=== PATIENT | female | born 1960 | race Caucasian/White ===

== ENCOUNTER 2025-01-28 11:05 | Outpatient (AMB) | payer MEDICARE, MEDICAID, SELFPAY ==
[2025-01-28 11:30] VITALS: BMI 26.6
--- NOTE | 2025-01-28 11:30 | HO.SPINEOV ---
Vital Signs 01/28/25 11:30 Height 5 ft 6 in Weight 165 lb BMI 26.6 Intake Visit Reasons: LBP Intake Note: Ms. Johnson is here today c/o low back pain that radiates to the legs. Marketing Strategy Manager Required: No Allergies Penicillins Allergy (Severe, Verified 01/28/25 11:32) Muscle Pain Physical Exam Vital Signs: BMI result Body Mass Index 26.6 Assessment & Plan Assessment & Plan (1) Bilateral sacroiliitis: Code(s): M46.1 - Sacroiliitis, not elsewhere classified Category: Medical Plan: Dear colleague Thank you for referring Sana Johnson to the office today with a chief complaint of pain around the SI joint, right more than left HPI: this 65-year-old female is having progressive pain predominantly on the right side in the SI joint region. The symptoms started in 2007 and have slowly progressed over the years. Currently they are debilitating and interfering with her daily activities. She can not sit for any prolonged period of times. Walking standing or sleeping is very painful. She is crying in the office from pain. She can not take it any longer. another side effect, of her in activity is weight gain. She has tried an SI joint belt without success. She had multiple cortisone injections in the lumbar spine in 1 injection in the SI joint the provide no relief. The left side is also affected but much less intense. Sometimes the pain radiates to the posterior side of her thigh. She denies weakness or numbness. The following conservative treatment options were tried without success antiinflammatories, tylenol, physician guided home exercise plan, cortisone shots PMH: AFib for which cardio ablation, hypertension, osteoporosis, GERD, hypothyroidism, stomach stapling, tummy tuck, right ankle replacement Medications: Eliquis, diltiazem, omeprazole, furosemide, lisinopril, hydrocodone, cetirizine, levothyroxine, trazodone, lorazepam, Ventolin p.r.n. Allergies: penicillin, Keflex, Demerol, quinolones Social history: Nonsmoker Physical Exam: pleasant female in obvious agony. Height 5'6 wait on this 65 lb. The severe pain over the right SI joint. Straight leg raise produces pain in the right SI joint. Cross leg test produces pain in the right SI joint. Radiological Studies: A CT scan of the lumbar spine shows a lumbar degenerative scoliosis in the lower part of the lumbar spine And at least osteopenia. Impression/Plan: This 65-year-old female suffering from longstanding pain in the bilateral SI joint region with the right side is more affected than the left side. The symptoms are most likely coming from sacroiliitis and less likely from the degenerative scoliosis. She is at her wits and and therefore I offered her a SI joint fusion with the understanding that her poor bone quality may prevent fusion in the end. I discussed the procedure, postoperative course and expected outcome. She wants to proceed. She will get preoperative clearance from her choreography director and primary care physician. Thank you for allowing me to participate in your patients care. total time spent was 50 minutes in counseling ,coordination of plan, personal review of imaging, surgical decision making and subsequent plan Emanuel Evans MD, PhD Spine Fellowship Trained Neurosurgeon Director, [facility] (2) Scoliosis of lumbar region due to degenerative disease of spine in adult: Code(s): M41.56 - Other secondary scoliosis, lumbar region Category: Medical (3) Osteoporosis: Code(s): M81.0 - Age-related osteoporosis without current pathological fracture Category: Medical Qualifiers: Osteoporosis type: age-related Presence of current pathological fracture: without current pathological fracture Qualified Code(s): M81.0 - Age-related osteoporosis without current pathological fracture Plan: j Plan h Coding Level of Care Code New Pt Level 4 (68355) Diagnoses Bilateral sacroiliitis M46.1 Scoliosis of lumbar region due to degenerative disease of spine in adult M41.56 Age-related osteoporosis without current pathological fracture M81.0 Osteoporosis type: age-related Presence of current pathological fracture: without current pathological fracture
--- OUTSIDE RECORDS SUMMARY | 2025-01-28 12:57 | XMS_ITS | Clinical Summary ---
Author Organization [facility] Address [address] [place] [phone] Phone Care Team Providers Care Lacquer Pin Press Operator Name Role Phone Papito Arroyo DO Primary Care Provider [phone] Allergies Active Allergy Reactions Criticality Noted Date Comments Adhesive Tape High 01/06/2019 Skin rips off Other reaction(s): paper - tears skin Other reaction(s): rash/blisters pt allergic to paper tape Cephalexin Rash,Other (see comments) Low 10/16/2017 Other reaction(s): hives Levofloxacin 12/26/2021 Other reaction(s): pain/depression [place] Other (see comments) 07/05/2020 Other reaction(s): unknown Meperidine Nausea And Vomiting,Other (see comments) 10/16/2017 Meperidine Hcl 12/26/2021 Other reaction(s): N/V Metoprolol Itching 05/09/2023 Hmdwi-Rozpg-Xydyjna-Pra moxine Hives,Itching High 01/06/2019 Antibiotic cream Neomycin Rash Low 12/26/2021 Other reaction(s): rash Other reaction(s): rash Other Itching,Rash,Swellin g Low 11/23/2020 Pollen Extract 10/16/2017 Quinolones Other (see comments) 07/05/2020 Tetracycline Rash Low 07/14/2018 Other reaction(s): rash on face Medications traZODone (DESYREL) 100 MG tablet Take 1 tablet by mouth at bed time Active onabotulinumtox Nick (BOTOX) 200 units injection 06/28/2019 Act rudy LORazepam (ATIVAN) 0.5 MG tablet TAKE 1 TABLET BY MOUTH TWICE A DAY IF NEEDED 08/25/2019 Active HYDROcodone-alysa taminophen (NORCO) 5-325 MG per tablet Take 1 tablet by mouth 4 (four) times a day 09/11/2016 Active dextroamphetami ne (DEXTROSTAT) 10 MG tablet Take 1.5 tablets by mouth 4 (four) times a day 08/17/2016 Active cycloSPORINE (Restasis) 0.05 % ophthalmic emulsion Active bisacodyl (DULCOLAX) 5 MG EC tablet Take 1 tablet by mouth 1 (one) time Active albuterol HFA (PROVENTIL HFA;VENTOLIN HFA) 108 (90 Base) MCG/ACT inhaler 2 puffs as needed Active omeprazole (PriLOSEC) [address] capsule Take 1 capsule by mouth 2 (two) times a day 07/23/2016 Active levothyroxine (SYNTHROID, LEVOTHROID) 112 MCG tablet 06/22/1992 Active Azelastine HCl 0.15 % solution USE 1 TO 2 SPRAYS IN EACH NOSTRIL TWICE DAILY NEEDED FOR ALLERGY SYMPTOMS 11/21/2020 Active FLUoxetine (PROzac) 40 MG capsule TK 2 CS PO QD 10/16/2020 Activ e fluticasone (FLONASE) 50 MCG/ACT nasal spray SHAKE LQ AND U 1 TO 2 SPRAYS IEN D 10/18/2020 Active metroNIDAZOLE (METROGEL) 0.75 % gel APPLY A THIN LAYER TO THE AFFECTED AREA TWICE DAILY AFTER WASHING NEEDED 10/20/2020 Active furosemide (Lasix) 20 MG tablet Take 1 tablet (20 mg total) by mouth 1 (one) time each day 30 tablet 5 03/28/2023 Active lisinopril 2.5 MG tablet Take 1 tablet (2.5 mg total) by mouth 1 (one) time each day 90 tablet 3 06/23/2024 06/23/20 25 Active Active Problems Problem Noted Date Diagnosed Date Chronic kidney disease, stage 4 (severe) 024 Edema 03/05/2024 Hyperkalemia 01/15/2022 Essential hypertension 11/28/2020 Stage 3b chronic kidney disease 11/28/2020 Overview (12/04/2020): Update for Diagnosis Load Chronic kidney disease due to hypertension 07/05 Hypertension 10/16/2017 Iron deficiency anemia 10/15/2017 Immunizations Name Administration Dates Next Due H1N1 Inj 12/10/2009 Influenza (IM) Preservative Free 07/16/2016 Influenza Whole 08/28/2009,09/23/2008 Influenza, MDCK, PF, Quadrivalent 07/24/2020, Influenza, Quadrivalent, Pre servative Free 09/04/2021,07/05/2017,09/01/2015 Influenza, Unspecified 09/04/2021,2019,09/28/2019,09/28,07/28/2018,07/05/2017,11/21/2016 ,07/16/2016,09/01/2015,08/25/2014,07/02,07/21/2012,06/25/2011, 0,10/29/2006 Pfizer SARS-COV-2 11/23/2021, 1,04/08/2021,03/18,03/18/2021 Pneumococcal Polysaccharide 07/16/2019 Td, Unspecified 06/14/2014,06/19/2004 Zoster 02/18/2018 Family History Relation Status Comments Father Unknown Mother Unknown Social History Tobacco Use Types Packs/Day Years Used Date Smoking Tobacco: Former Cigarettes 1.5 20.5 0 12/01/1973 - 05/27/1994 Smokeless Tobacco: Never Tobacco Cessation:Counseling Given: Not Answered Comments:Smoking History Info:Every day Alcohol Use Standard Drinks/Week Comments No 0 (1 standard drink = 0.6 oz pur e alcohol) Comments Unknown Sex and Gender Information Value Date Recorded Sex Assigned at Female 11/22/2020 7:58 AM EST Legal Sex Female 4:35 PM EST Gender Identity Female 11/22/2020 7:58 AM EST Sexual Orientation Straight 11/22/2020 7: 58 AM EST Last Filed Vital Signs Vital Sign Reading Time Taken Comments Blood Pressure 160/80 03/26/2022 10:21 AM EDT Pulse 68 03/26/2022 10:21 AM EDT Temperature 36.7 ??C (98 ??F) 08/03/2019 12:00 PM EDT Respiratory Rate 14 03/26/2022 10:21 AM EDT Oxygen Saturation - - Inhaled Oxygen Concentration - - Weight 65.8 kg (145 lb) 03/26/2022 10:21 AM EDT Height 167.6 cm (5' 6 ) 03/26/2022 10:21 AM EDT Body Mass Index 23.4 03/26/2022 10:21 AM EDT Plan of Treatment Upcoming Encounters Date Type Department Care Team (Late st Contact Info) Description 03/18/2025 11:00 AM EDT Office Visit [facility] [place] - [address] [place] [address] Hayes Eden MD [address] [place] [address] Health Maintenance Due Date Last Done Comments Breast Cancer Screening 1962 Colorectal Cancer Screening: Annual FOBT 2011 Colorectal Cancer Screening: Colonoscopy 2011 Colorectal Cancer Screening: Sigmoidoscopy 2011 Pneumococcal Vaccine: Pediatrics (0 to 5 Years) and At-Risk Patients (6 to 64 Years) (2 of 2 - PCV) 07/16/2020 07/16/2019 Influenza Vaccine (#1) 2024 1, 09/04/2021, 07/24/2020, Additional history exists Hepatitis B Vaccine Aged Out No longe r eligible based on patient's age to complete this topic Insurance MEDICARE MEDICAID [place] Care Teams Lacquer Pin Press Operator Relationship Specialty Start Date End Date Papito Arroyo DO [address] [place] [address] PCP - General 03/05/24
--- OUTSIDE RECORDS SUMMARY | 2025-01-28 12:57 | XMS_ITS | Encounter Summary ---
Author Organization [facility] Address [address] [place] [address] Phone Care Team Providers Care Department Head College Or University Name Role Phone Papito Arroyo DO Primary Care Provider Encounter Details Date Type Department Care Team (Late st Contact Info) Description 07/16/2022 Documentation Only [facility] [address] [place] [address] Lupe Bautista [address] [place] [address] Social History Tobacco Use Types Packs/Day Years Used Date Smoking Tobacco: Former Cigarettes Q uit: 05/27/1994 Comments:Smoking History Inf o:Every day Alcohol Use Standard Drinks/Week Comments No 0 (1 standard drink = 0.6 oz pur e alcohol) Comments Unknown Sex and Gender Information Value Date Recorded Sex Assigned at Female 11/22/2020 7:58 AM EST Legal Sex Female 4:35 PM EST Gender Identity Female 11/22/2020 7:58 AM EST Sexual Orientation Straight 11/22/2020 7: 58 AM EST documented as of this encounter Plan of Treatment Upcoming Encounters Date Type Department Care Team (Late st Contact Info) Description 03/18/2025 11:00 AM EDT Office Visit [facility] - [address]ien [address] [place] [phone] Hayes Eden MD [address] [place] [address] [place] [address] documented as of this encounter Visit Diagnoses Not on filedocumented in this encounter Care Teams Department Head College Or University Relationship Specialty Start Date End Date Papito Arroyo DO [address] [place] [address] PCP - General 03/05/24 documented as of this encounter
--- OUTSIDE RECORDS SUMMARY | 2025-01-28 12:57 | XMS_ITS | Encounter Summary ---
Author Organization [facility] [place], Address [address] [place] [address] Phone Care Team Providers Care Window Shade Cloth Sewer Name Role Phone Papito rAroyo DO Primary Care Provider [phone] Encounter Details Date Type Department Care Team (Late st Contact Info) Description 09/05/2023 Documentation Only [facility] [place] [address] [place] [address] Hayes Eden MD [address] [place] [address] [place] [address] Social History Tobacco Use Types Packs/Day Years [...] Visit [facility] [address] [place] [address] Hayes Eden MD [address] [place] [address] [place] [address] documented as of this encounter Visit Diagnoses Not on filedocumented in this encounter Care Teams Window Shade Cloth Sewer Relationship Specialty Start Date End Date Papito Arroyo DO [address] [place] [address] PCP - General 03/05/24 documented as of this encounter
--- OUTSIDE RECORDS SUMMARY | 2025-01-28 12:57 | XMS_ITS | Encounter Summary ---
Author Organization [facility] Address [address] [place] [address] Phone Care Team Providers Care Analytic Manager Name Role Phone Papito Arroyo DO Primary Care Provider [phone] Encounter Details Date Type Department Care Team (Late st Contact Info) Description 03/20/2023 Office Communication [facility] [address] [place] [phone] Hayes Eden MD [address] [place] [address] [place] [address] Social History Tobacco Use Types [...] AM EST documented as of this encounter Miscellaneous Notes * Telephone Encounter - Addie Timmons - 03/24/2023 9:04 AM EDT Called pt LVM asking her if she was able to get this medication. documented in this encounter Plan of Treatment Upcoming Encounters Date Type Department Care Team (Late st Contact Info) Description 03/18/2025 11:00 AM EDT Office Visit [facility] - Missy [address] [place] [phone] Hayes Eden MD [address] [place] [phone] documented as of this encounter Visit Diagnoses Not on filedocumented in this encounter Care Teams Analytic Manager Relationship Specialty Start Date End Date Papito Arroyo DO [address] [place] [address] PCP - General 03/05/24 documented as of this encounter
--- OUTSIDE RECORDS SUMMARY | 2025-01-28 12:57 | XMS_ITS | Encounter Summary ---
Author Organization [facility] [place], Address [address] [place] [address] Phone Care Team Providers Care Assistant Professor Of Dietetics Name Role Phone Papito Arroyo DO Primary Care Provider [phone] Encounter Details Date Type Department Care Team (Late st Contact Info) Description 09/08/2024 Documentation Only [facility] [place] [address] Kelsey Jacques [address] [place] [address] Social History Tobacco Use Types Packs/Day Years Used Date Smoking Tobacco: Former Cigarettes 1.5 20.5 0 12/01/1973 - 05/27/1994 Smokeless Tobacco: Never Comments:Smoking History Inf o:Every day Alcohol Use [...] Visit [facility] [address] [place] [address] Hayes Eden MD [address] [place] [phone] documented as of this encounter Visit Diagnoses Not on filedocumented in this encounter Care Teams Assistant Professor Of Dietetics Relationship Specialty Start Date End Date Papito Arroyo DO [facility] [place] [address] PCP - General 03/05/24 documented as of this encounter
== END 2025-01-28 12:20 | disposition home or self-care (01) ==
PROVIDERS: PCP Family Medicine; Visit Provider Neurological Surgery
DX: M46.1 Sacroiliitis, not elsewhere classified (principal); M41.56 Other secondary scoliosis, lumbar region; M81.0 Age-related osteoporosis without current pathological fracture
CPT/HCPCS: 99204

== ENCOUNTER → 2025-01-28 11:05 | Outpatient (BNVA) | payer MEDICARE, MEDICAID, SELFPAY | PROVIDERS: PCP Family Medicine; Visit Provider Neurological Surgery | DX: M46.1 Sacroiliitis, not elsewhere classified (principal); M41.56 Other secondary scoliosis, lumbar region; M81.0 Age-related osteoporosis without current pathological fracture | CPT/HCPCS: 99202 ==

== ENCOUNTER 2025-03-31 08:00 | Day surgery (SDC) | payer MEDICARE, MEDICAID, SELFPAY ==
--- OUTSIDE RECORDS SUMMARY | 2025-02-02 10:03 | XMS_ITS | Clinical Summary ---
Author Organization [facility] Address [address] [place] [phone] Phone Care Team Providers Care Pump Attendant Name Role Phone Papito Arroyo DO Primary Care Provider [phone] Allergies Active Allergy Reactions Criticality Noted Date Comments Adhesive Tape High 01/06/2019 Skin rips off Other reaction(s): paper - tears skin Other reaction(s): rash/blisters pt allergic to paper tape Cephalexin Rash,Other (see comments) Low 10/16/2017 Other reaction(s): hives Levofloxacin 12/26/2021 Other reaction(s): pain/depression [place] Other (see comments) 07/05/2020 Other reaction(s): unknown Meperidine Nausea And Vomiting,Other (see comments) 10/16/2017 Meperidine Hcl 12/26/2021 Other reaction(s): N/V Metoprolol Itching 05/09/2023 Vopbc-Wdlmp-Szqgvpg-Pra moxine Hives,Itching High 01/06/2019 Antibiotic cream Neomycin [...] Visit [facility] [place] [place] - [address] [place] [address] Hayes Eden MD [address] [place] [address] Health Maintenance Due Date Last Done Comments [...] topic Insurance MEDICARE MEDICAID [place] Care Teams Pump Attendant Relationship Specialty Start Date End Date Papito Arroyo DO [address] [place] [address] PCP - General 03/05/24
--- OUTSIDE RECORDS SUMMARY | 2025-02-02 10:03 | XMS_ITS | Encounter Summary ---
Author Organization [facility] [place], Address [address] [place] [address] Phone Care Team Providers Care Tooth Inspector Name Role Phone Papito Arroyo DO Primary Care Provider [phone] Encounter Details Date Type Department Care Team (Late st Contact Info) Description 09/08/2024 Documentation Only [facility] [place] [address] Kelsey Jacques [address] [place] [address] Social History Tobacco Use Types [...] Visit [facility] [address] [place] [address] Hayes Eden MD [address] [place] [phone] documented as of this encounter Visit Diagnoses Not on filedocumented in this encounter Care Teams Tooth Inspector Relationship Specialty Start Date End Date Papito Arroyo DO [facility] [place] [address] PCP - General 03/05/24 documented as of this encounter
--- OUTSIDE RECORDS SUMMARY | 2025-02-02 10:03 | XMS_ITS | Encounter Summary ---
Author Organization [facility] [place], Address [address] [place] [address] Phone Care Team Providers Care General Production Laborer Name Role Phone Papito Arroyo DO Primary Care Provider [phone] Encounter Details Date Type Department Care Team (Late st Contact Info) Description 09/05/2023 Documentation Only [facility] [place] [address] [place] [address] Hayes Eden MD [address] [place] [address] [place] [address] Social History Tobacco Use Types [...] Visit [facility] [address] [place] [address] Hayes Eden MD [address] [place] [address] [place] [address] documented as of this encounter Visit Diagnoses Not on filedocumented in this encounter Care Teams General Production Laborer Relationship Specialty Start Date End Date Papito Arroyo DO [address] [place] [address] PCP - General 03/05/24 documented as of this encounter
--- OUTSIDE RECORDS SUMMARY | 2025-02-02 10:03 | XMS_ITS | Encounter Summary ---
Author Organization [facility] Address [address] [place] [address] Phone Care Team Providers Care Computational Scientist Name Role Phone Papito Arroyo DO Primary Care Provider [phone] Encounter Details Date Type Department Care Team (Late st Contact Info) Description 07/16/2022 Documentation Only [facility] [address] [place] [address] Lupe Bautista [address] [place] [address] Social History Tobacco Use Types [...] Visit [facility] - [address] [place] [phone] Hayes Eden MD [address] [place] [address] [place] [address] documented as of this encounter Visit Diagnoses Not on filedocumented in this encounter Care Teams Computational Scientist Relationship Specialty Start Date End Date Papito Arroyo DO [address] [place] [address] PCP - General 03/05/24 documented as of this encounter
--- OUTSIDE RECORDS SUMMARY | 2025-02-02 10:03 | XMS_ITS | Patient Health Record ---
Author Organization [facility] Address [address] [place] [address] Care Team Providers Care Chemistry Lecturer Name Role Phone Mir Harding Primary Care Provider Reason For Referral No Information Plan Of Treatment No Information
--- OUTSIDE RECORDS SUMMARY | 2025-02-02 10:03 | XMS_ITS | Encounter Summary ---
Author Organization [facility] Address [address] [place] [address] Phone Care Team Providers Care Program Admin Name Role Phone Papito Arroyo DO Primary Care Provider [phone] Encounter Details Date Type Department Care Team (Late st Contact Info) Description 03/20/2023 Office Communication [facility] [address] [place] [phone] Hayes Eden MD [address] [place] [address] [place] [address] Social History Tobacco Use Types [...] Visit [facility] - Missy [address] [place] [phone] Hayes Eden MD [address] [place] [phone] documented as of this encounter Visit Diagnoses Not on filedocumented in this encounter Care Teams Program Admin Relationship Specialty Start Date End Date Papito Arroyo DO [address] [place] [address] PCP - General 03/05/24 documented as of this encounter
[2025-02-21 16:55] VITALS: BMI 26.6
[2025-03-31] VITALS (8 sets, daily range): BP systolic 110–132; BP diastolic 45–63; PULSE 77–111; RESP 16–18; TEMP 36.6–36.8; O2SAT 95–99; BMI 26.3
--- NOTE | ~2025-03-31 | FL_ITS ---
EXAMINATION: FL GUIDANCE ONLY HISTORY: SI joint fusion right COMPARISON: None available. TECHNIQUE: Fluoroscopy time: 43.4 seconds. Cumulative Dose: 17.984 mGy. DAP: 6.242 mGym2 Images: 2. FINDINGS: Fluoroscopic spot films of the right sacroiliac joint were obtained. FL/FL guidance in OR IMPRESSION: Fluoroscopy during procedure. Please see procedure report for additional information. Electronically signed by: Malick Vargas MD 03/31/2025 01:36 PM EDT
[2025-03-31] MEDS: vancomycin HCL 1,000 MG in 0.9 % Sodium Chloride 250 ML 270 MG IV (08:46)
[2025-03-31] MEDS: methocarbamoL 750 MG TABLET PO (08:46)
[2025-03-31] MEDS: Lactated Ringers 1,000 ML 100 ML IVCONT (08:50)
--- NOTE | 2025-03-31 10:39 | P.HPSUR_ITS ---
Pre-Procedural Eval Section A - 24 Hr Update-Section A only Date of Service: 03/31/25 The patient is an INPATIENT: No Changes since office visit: No Cold of Flu in the past 2 weeks, No New Medical Problems, No Changes in Medication and No Patient answered all questions The patient has been examined within 24 hours of the surgical procedure. The History & Physical has been completed within 30 days and I have reviewed it.: No Section B - Complete if H&P > 30 days Chief Complaint: Sacroiliitis, not elsewhere classified Allergies: Allergies Allergy/AdvReac Type Severity Reaction Status Date / Time Penicillins Allergy Severe Muscle Pain Verified 01/28/25 11:32 Quinolones Allergy Severe tired, Verified 02/21/25 16:38 depressed, pain cephalexin [From Keflex] Allergy Intermediate Rash Verified 02/21/25 16:38 Tetracyclines Allergy Intermediate Rash Verified 02/21/25 16:39 meperidine [From Demerol] AdvReac Intermediate Nausea and Verified 02/21/25 1 6:38 Vomiting paper tape AdvReac Intermediate tears skin Uncoded 02/21/25 16:38 Review of Systems Sugical H&P ROS: Negative: Constitution, Cardiovascular, Respiratory, Neurological, Psychiatric, Hem-Onc, Allergic/Immunologic, Gastrointestinal, Genitourinary, Musculoskeletal, Integumentary, Endocrine and Eyes/Ears/Nose/Throat Exam Surgical H&P Exam: Normal: HEENT, Normal: Heart, Normal: Lungs, Normal: Extremities, Normal: Abdomen, Normal: Skin and Normal: Neurological (awake, alert,oriented x 3 ) Plan Diagnosis/Plan: Unchanged right SI joint fusion Time Spent With Patient Time: Total time managing care of this patient today __5__ minutes.
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
--- NOTE | 2025-03-31 11:42 | P.DS_ITS ---
DS: Providers Provider Date of Service: 03/31/25 Date of discharge: 03/31/25 Primary care physician: Papito Arroyo DO Admitting clinician: Emanuel Evans DS: Diagnosis Discharge Diagnosis (1) Bilateral sacroiliitis: Status: Acute DS: Summary Time Attestation Discharge Coordination Time (in mins): 4 Quality: Safe Use of Opioids Does Pt have an Active Cancer Diagnosis on the Problem List?: No Quality: Stroke Does the patient have a stroke diagnosis?: No Physical Exam Vital Signs: Vital Signs: Last Vital Signs Temp 97.9 F 03/31/25 08:33 Pulse 84 03/31/25 08:33 Resp 16 03/31/25 08:33 BP 119/63 03/31/25 08:33 Pulse Ox 99 03/31/25 08:33 O2 Del Method Room Air 03/31/25 08:33 BMI result Body Mass Index 26.3 Discharge Plan Discharge Patient Disposition: Home, Self-Care Referrals: Papito Arroyo DO [Primary Care Provider] - 1 Week Discharge Medications: New docusate sodium [Colace] 100 mg capsule 100 mg PO BID Qty: 20 0RF oxycodone 5 mg tablet 5 mg PO Q4H PRN (Reason: pain) Qty: 20 0RF Rx Instructions: Partial Fill upon patient request. Continued hydrocodone-acetaminophen 5-325 mg tablet 2 tab PO QID PRN (Reason: Pain) dextroamphetamine sulfate 10 mg tablet 60 mg PO DAILY lorazepam 0.5 mg tablet 0.5 mg PO BID PRN (Reason: Anxiety) trazodone 100 mg tablet 100 mg PO BEDTIME gabapentin 100 mg capsule 100 mg PO 3XD azelastine 137 mcg (0.1 %) spray,non-aerosol 1 spray intranasal DAILY albuterol sulfate [Ventolin HFA] 90 mcg/actuation HFA aerosol inhaler 2 inh INHALATION Q4-6H PRN (Reason: Shortness Of Breath Or Wheezing) fluticasone propionate 50 mcg/actuation spray,suspension 1 spray INTRANASAL DAILY levothyroxine 112 mcg tablet 112 mcg PO DAILY cyclosporine 0.05 % dropperette 1 drp ophthalmic (eye) BID omeprazole 20 mg capsule,delayed release(DR/EC) 20 mg PO BID diltiazem HCl 180 mg capsule,extended release 24hr 180 mg PO DAILY furosemide 80 mg tablet 60 mg PO DAILY lisinopril 2.5 mg tablet 2.5 mg PO DAILY Held Eliquis 5 mg tablet 5 mg PO BID Hold Instructions: Resume on 04/03/25. you may restart 3 days after surgery Discharge Orders: Discharge Order (Routine); Ordered 03/31/25 Ordered By: William Sosa Diet: Advance to usual diet Activity on Discharge: As tolerated Activity Restrictions/Additional Instructions: After your SI joint fusion surgery we ask you to observe the following restrictions/guidelines: Activity: It is normal to feel some discomfort as you increase your activity, but that will improve with time. We ask you avoid heavy lifting or acitivities that cause pain. As a general rule, 8lbs is a safe limit for lifting right after surgery. We ask you to stay off your right leg after surgery in order to help the SI joint fuse. Please use crutches or walker. You may return to driving when you are off narcotics (such as vicodin, oxycodone, dilaudid, etc), and you are back to normal functional capacity. If you have any concerns please check with office before driving. Return to work is specific to each patient and each surgery, so please speak with your doctor/PA at first follow up. Please bring paperwork such as FMLA at that time if you need it filled out. Follow up: Please call the office, , after surgery to arrange a 3 week follow up for wound check. Wound Care: Your wound was closed with glue, there are no sutures to remove. You may shower on post op day # 1. We ask that you do not let the water soak the wound. If it does get wet, just towel dry lightly. Please do not scrub your incision or place any type of chemical/ointment on the wound. No tub baths, pools or jacuzzis for one month. If you have any leaking or redness from your wound, or fevers, please call office Medications: You may resume Eliquis 3 days after surgery We will give you a short supply of narcotics after surgery (usually one weeks worth). If you need more please call the office but do not use more than prescribed. You will need to give our office 48 hours notice if you need narcotics refilled and we do not fill narcotics on weekends or evenings. If you are on a narcotic, it is a good idea to take a stool softener such as colace or senna to avoid constipation If you take blood thinner such as aspirin, Plavix, Coumadin, Effient, Eliquis etc for conditions such as Afib, DVT, Pulmonary embolus, coronary disease, stents etc please speak with your surgeon about specific details as to when you can resume these medications. You can resume NSAIDs on post op day 1 (eg: Motrin, Naproxen, etc). Print Language: Amharic
--- NOTE | 2025-03-31 12:27 | W.PM.OPN ---
Operative Note Operative Note Date of Service: 03/31/25 Narrative: Preoperative diagnosis: Right Sacroiliitis Postoperative diagnosis: Same Operative procedure: Right sacroiliac joint fusion with 1 allograft implant Surgeon: Emanuel Evans MD, PhD Combatant Diver Qualified: William Sosa PA-C Anesthesia: General Description of procedure: The patient is suffering from right SI joint dysfunction refractory to nonoperative management. The patient has tried and failed all forms of conservative manage med except for an excellent short-term response to a sacroiliac joint injection. The sacroiliac joint was confirmed to be the pain generator after repeated pain blocks. The patient was offered surgical treatment with fixation and arthrodesis of the SI joint. The patient was brought to the operating room and endotracheally intubated. The patient was turned in a prone position on Seymour spine table. Prepping and draping was done followed by a time-out. A C-arm was alternately positioned for lateral, oblique oblique and pelvic inlet and outlet projections througout the procedure. Skin markings were made for the anticipated position of the implant. A 2.5 cm longitudinal skin incision was made. A guide pin was inserted in an outlet oblique image for guidance follow-up insertion of dilator and working cannula. This was secured by placing an anchor pin into the ilium. Consideration was taken to cut channels utilizing a series of drills for decortication and internal fixation device placement. The implant was inserted such that it passed through the ilium, across the sacroiliac joint and into the sacrum, thus transfixing the sacroiliac joint. Proper positioning was confirmed on lateral fluoroscopy. The implant was packed with autologous bone collected from remain of the sacrum and ilium. Additional graft material was inserted into the channel void following the implant. The instruments were withdrawn. Upon completion, final images were obtained that showed a satisfactory position of the implant. Hemostasis was done. The incision was closed with an 0 Vicryl to fashion a 3-0 Vicryl subdermal layer after injecting Marcaine. Dermabond was used to approximate the surgeon. All sponge and needle counts were correct. Patient was extubated and transported in a stable condition to recovery room. Estimated blood loss: 20 Complications: None Operative time: 25 minutes Disposition: Discharge to home
[2025-03-31] MEDS: fentaNYL citrate/PF 100 MCG/2 ML VIAL 50 MCG IVPUSH (13:10)
[2025-03-31] MEDS: oxyCODONE HCl Immed Release 5 MG TABLET PO (13:18)
== END 2025-03-31 14:28 | disposition home or self-care (01) ==
PROVIDERS: PCP Family Medicine; Visit Provider Neurological Surgery
PROC: (CPT 27279; principal; 2025-03-31 10:30)
DX: M46.1 Sacroiliitis, not elsewhere classified (principal); M53.3 Sacrococcygeal disorders, not elsewhere classified; I48.91 Unspecified atrial fibrillation; I10 Essential (primary) hypertension; M81.0 Age-related osteoporosis without current pathological fracture; M41.56 Other secondary scoliosis, lumbar region; K21.9 Gastro-esophageal reflux disease without esophagitis; E03.9 Hypothyroidism, unspecified; Z79.01 Long term (current) use of anticoagulants; Z79.899 Other long term (current) drug therapy; Z88.0 Allergy status to penicillin; Z88.8 Allergy status to other drugs, medicaments and biological substances; Z98.890 Other specified postprocedural states
CPT/HCPCS: 27279; C1713; J0131; J1100; J1171; J2003; J2405; J2704; J3010; J3370; L8699

== ENCOUNTER → 2025-03-31 08:00 | Outpatient (BNV) | payer MEDICARE, MEDICAID, SELFPAY | PROVIDERS: PCP Family Medicine; Visit Provider Physician Assistant | DX: M46.1 Sacroiliitis, not elsewhere classified (principal) | CPT/HCPCS: 27279; 99499 ==

== ENCOUNTER 2025-04-21 10:32 | Outpatient (REF) | payer MEDICARE, MEDICAID, SELFPAY ==
--- OUTSIDE RECORDS SUMMARY | 2025-04-21 11:36 | XMS_ITS | Encounter Summary ---
Author Organization [facility] Address [address] [place] [address] Phone Care Team Providers Care Dope Dry House Operator Name Role Phone Papito Arroyo DO Primary Care Provider [phone] Encounter Details Date Type Department Care Team (Late st Contact Info) Description 07/16/2022 Documentation Only [facility] [place], [address] [place] [address] Lupe Bautista [address] [place] [address] Social History Tobacco Use Types [...] on filedocumented in this encounter Care Teams Dope Dry House Operator Relationship Specialty Start Date End Date Papito Arroyo DO [address] [facility] [place] [address] PCP - General 03/05/24 documented as of this encounter
--- OUTSIDE RECORDS SUMMARY | 2025-04-21 11:36 | XMS_ITS | Encounter Summary ---
Author Organization [facility], Address [address] [place] [address] Phone Care Team Providers Care Wire Stockkeeper Name Role Phone Papito Arroyo DO Primary Care Provider [phone] Encounter Details Date Type Department Care Team (Late st Contact Info) Description 04/19/2025 Orders Only [facility] [address] [place] [phone] Kenyatta Spear [address] [place] [address] Chronic kidney disease, stage 4 [...] Primary documented in this encounter Care Teams Wire Stockkeeper Relationship Specialty Start Date End Date Papito Arroyo DO [address] [place] [address] PCP - General 03/05/24 documented as of this encounter
--- OUTSIDE RECORDS SUMMARY | 2025-04-21 11:36 | XMS_ITS | Encounter Summary ---
Author Organization [facility], Address [address] [place] [address] Phone Care Team Providers Care Supervisor Respiratory Name Role Phone Papito Arroyo DO Primary Care Provider [phone] Encounter Details Date Type Department Care Team (Late st Contact Info) Description 09/08/2024 Documentation Only [facility], - [address] [place] [address] Kelsey Jacques [address] [place] [address] Social History Tobacco Use Types Packs/Day [...] on filedocumented in this encounter Care Teams Supervisor Respiratory Relationship Specialty Start Date End Date Papito Arroyo DO [address] [place] [address] PCP - General 03/05/24 documented as of this encounter
--- OUTSIDE RECORDS SUMMARY | 2025-04-21 11:36 | XMS_ITS | Encounter Summary ---
Author Organization [facility] [place], Address [address] [place] [address] Phone Care Team Providers Care Medical Records Director Name Role Phone Papito Arroyo DO Primary Care Provider [phone] Encounter Details Date Type Department Care Team (Late st Contact Info) Description 09/05/2023 Documentation Only [facility] [place] [address] Hayes Eden MD [address] [place] [address] Social History Tobacco Use Types [...] on filedocumented in this encounter Care Teams Medical Records Director Relationship Specialty Start Date End Date Papito Arroyo DO [address] [facility] [place] [address] PCP - General 03/05/24 documented as of this encounter
--- OUTSIDE RECORDS SUMMARY | 2025-04-21 11:36 | XMS_ITS | Clinical Summary ---
Author Organization [facility] Address [address] [place] [phone] Phone Care Team Providers Care Switch Inspector Name Role Phone Papito Arroyo DO Primary Care Provider [phone] Allergies Active Allergy Reactions Criticality Noted Date Comments Adhesive Tape High 01/06/2019 Skin rips off Other reaction(s): paper - tears skin Other reaction(s): rash/blisters pt allergic to paper tape Cephalexin Rash,Other (see comments) Low 10/16/2017 Other reaction(s): hives Levofloxacin 12/26/2021 Other reaction(s): pain/depression [place] Other (see comments) 07/05/2020 Other reaction(s): unknown Meperidine Nausea And Vomiting,Other (see comments) 10/16/2017 Meperidine Hcl 12/26/2021 Other reaction(s): N/V Metoprolol Itching 05/09/2023 Ucipi-Dvzry-Qwngzks-Pra moxine Hives,Itching High 01/06/2019 Antibiotic cream Neomycin [...] Only [facility] [address] [place] [address] [place] [address] Kenyatta Spear Chronic kidney disease, stage [...] topic Insurance Medicare Medicaid [place] Care Teams Switch Inspector Relationship Specialty Start Date End Date Papito Arroyo DO [address] [place] [address] PCP - General 03/05/24
--- OUTSIDE RECORDS SUMMARY | 2025-04-21 11:36 | XMS_ITS | Encounter Summary ---
Author Organization [facility] Address [address] [place] [address] Phone Care Team Providers Care Station Engineer Name Role Phone Papito Arroyo DO Primary Care Provider [phone] Encounter Details Date Type Department Care Team (Late st Contact Info) Description 03/20/2023 Office Communication [facility] [place], [address] [place] [address] Hayes Eden MD [address] [place] [address] Social History Tobacco Use Types [...] on filedocumented in this encounter Care Teams Station Engineer Relationship Specialty Start Date End Date Papito Arroyo DO [address] [place] [address] PCP - General 03/05/24 documented as of this encounter
== END 2025-04-21 10:33 | disposition home or self-care (01) ==
LOC: HO.HOSX 10:32
PROVIDERS: PCP Family Medicine; Visit Provider Physician Assistant
DX: Z98.1 Arthrodesis status (principal)
CPT/HCPCS: 99212

== ENCOUNTER 2025-04-21 10:32 | Outpatient (AMB) | payer MEDICARE, MEDICAID, SELFPAY ==
--- NOTE | 2025-04-21 10:34 | A.SPINEOV_ITS ---
Intake Visit Reasons: 1st post op Intake Note: Ms. Johnson is here today for 1st post op. Merchandise Planning Manager Required: No Allergies Penicillins Allergy (Severe, Verified 01/28/25 11:32) Muscle Pain Quinolones Allergy (Severe, Verified 02/21/25 16:38) tired, depressed, pain cephalexin [From Keflex] Allergy (Intermediate, Verified 02/21/25 16:38) Rash Tetracyclines Allergy (Intermediate, Verified 02/21/25 16:39) Rash meperidine [From Demerol] Adverse Reaction (Intermediate, Verified 02/21/25 16:38) Nausea and Vomiting paper tape Adverse Reaction (Intermediate, Uncoded 02/21/25 16:38) tears skin Assessment & Plan Assessment & Plan (1) S/P fusion of sacroiliac joint: Code(s): Z98.1 - Arthrodesis status Category: Surgical Plan Sana comes in today for subsequent follow up after having right-sided SI joint fusion completed by Dr. Evans a few weeks ago. She is very concerned that she does not feel she is experiencing any benefit from the surgery. She states that she was told by Dr. Evans prior to surgery that if she does not feel symptom resolution within 10 days, then the surgery was not successful at treating her pain. She has been strictly adhering to the recommendation that she utilize her crutches for ambulation. We discusseTemplate sond cessation of her crutches during this visit today. She asked several questions regarding the postoperative healing course, all of which I answered to the best of my ability. No new neurological deficits. The patient ambulates well and rises from a seated position without difficulty. Her posterior incision site is closed and well healing. I would like to follow up with Sana again in 6 weeks and obtain a set of x-rays of the right SI joint space. Tyson Evans MD,PhD [facility] Orders: Orders XR sacroiliac joint 1-2V Today Z98.1 - Arthrodesis status Coding Level of Care Code Global (58026) Diagnoses S/P fusion of sacroiliac joint Z98.1
--- OUTSIDE RECORDS SUMMARY | 2025-04-21 11:09 | XMS_ITS | Encounter Summary ---
Author Organization [facility], Address [address] [place] [address] Phone Care Team Providers Care Frit Burner Name Role Phone Papito Arroyo DO Primary Care Provider [phone] Encounter Details Date Type Department Care Team (Late st Contact Info) Description 09/08/2024 Documentation Only [facility], - [address] Julien QUIROZ [address] [place] [phone] Kelsey Jacques [address] [place] [phone] Social History Tobacco Use Types Packs/Day [...] as of this encounter Plan of Treatment Not on file documented as of this encounter Visit Diagnoses Not on filedocumented in this encounter Care Teams Frit Burner Relationship Specialty Start Date End Date Papito Arroyo DO [address] [place] [address] PCP - General 03/05/24 documented as of this encounter
--- OUTSIDE RECORDS SUMMARY | 2025-04-21 11:09 | XMS_ITS | Encounter Summary ---
Author Organization [facility] Address [address] [place] [address] Phone Care Team Providers Care Director Traffic And Planning Name Role Phone Papito Arroyo DO Primary Care Provider [phone] Encounter Details Date Type Department Care Team (Late st Contact Info) Description 07/16/2022 Documentation Only [facility], [address] [place] [address] Lupe Bautista [address] [place] [address] Social History Tobacco Use Types [...] on filedocumented in this encounter Care Teams Director Traffic And Planning Relationship Specialty Start Date End Date Papito Arroyo DO [address] [facility] [place] [address] PCP - General 03/05/24 documented as of this encounter
--- OUTSIDE RECORDS SUMMARY | 2025-04-21 11:09 | XMS_ITS | Encounter Summary ---
Author Organization [facility] Address [address] [place] [address] Phone Care Team Providers Care Hatch Boss Name Role Phone Papito Arroyo DO Primary Care Provider [phone] Encounter Details Date Type Department Care Team (Late st Contact Info) Description 03/20/2023 Office Communication [facility], [address] [place] [address] Hayes Eden MD [address] [place] [address] Social History Tobacco Use Types [...] documented in this encounter Plan of Treatment Not on file documented as of this encounter Visit Diagnoses Not on filedocumented in this encounter Care Teams Hatch Boss Relationship Specialty Start Date End Date Papito Arroyo DO [address] [place] [address] PCP - General 03/05/24 documented as of this encounter
--- OUTSIDE RECORDS SUMMARY | 2025-04-21 11:09 | XMS_ITS | Encounter Summary ---
Author Organization [facility], Address [address] [place] [address] Phone Care Team Providers Care Shirt Operator Name Role Phone Papito Arroyo DO Primary Care Provider [phone] Encounter Details Date Type Department Care Team (Late st Contact Info) Description 04/19/2025 Orders Only [facility] - [facility] [address] [place] [phone] Kenyatta Spear [address] [place] [address] Chronic kidney disease, stage 4 (severe) (HCC) (Primary Dx) Social History Tobacco Use Types Packs/Day Years [...] as of this encounter Plan of Treatment Scheduled Orders Name Type Priority Associated Diagnoses Orde r Schedule Urine Albumin / Creatinine Ratio Lab Routine Chronic kidney disease, stage 4 (severe) (HCC) Every 12 Weeks for 4 Occurrences starting 04/19/2025 until 05/20/2026 documented as of this encounter Visit Diagnoses Diagnosis Chronic kidney disease, stage 4 (severe) (HCC)- Primary documented in this encounter Care Teams Shirt Operator Relationship Specialty Start Date End Date Papito Arroyo DO [address] [place] [address] PCP - General 03/05/24 documented as of this encounter
--- OUTSIDE RECORDS SUMMARY | 2025-04-21 11:09 | XMS_ITS ---
Author Name [facility] Organization Unknown Encounters Encounter Type Encounter Reason Primary Diagnosis Location Date Ambulatory [facility] 10/18/2023 Ambulatory [facility] 10/09/2023 Ambulatory [facility] 09/04/2023 Ambulatory [facility] 07/08/2023 Ambulatory [facility] 07/08/2023 Ambulatory [facility] 07/08/2023 Ambulatory [facility] 07/08/2023
--- OUTSIDE RECORDS SUMMARY | 2025-04-21 11:09 | XMS_ITS | Encounter Summary ---
Author Organization [facility], Address [address] [place] [address] Phone Care Team Providers Care Heating Plant Superintendent Name Role Phone Papito Arroyo DO Primary Care Provider [phone] Encounter Details Date Type Department Care Team (Late st Contact Info) Description 09/05/2023 Documentation Only [facility] [address] [place] [address] Hayes Eden MD [address] [place] [address] Social History Tobacco Use Types [...] on filedocumented in this encounter Care Teams Heating Plant Superintendent Relationship Specialty Start Date End Date Papito Arroyo DO [address] [facility] [place] [address] PCP - General 03/05/24 documented as of this encounter
--- OUTSIDE RECORDS SUMMARY | 2025-04-21 11:09 | XMS_ITS | Patient Health Record ---
Author Organization [facility] Address [address] [place] [address] Care Team Providers Care Allocations Clerk Name Role Phone Mir Harding Primary Care Provider Reason For Referral No Information Plan Of Treatment No Information
--- OUTSIDE RECORDS SUMMARY | 2025-04-21 11:09 | XMS_ITS | Clinical Summary ---
Author Organization [facility] Address [address] [place] [phone] Phone Care Team Providers Care Cane Cutter Name Role Phone Papito Arroyo DO Primary Care Provider [phone] Allergies Active Allergy Reactions Criticality Noted Date Comments Adhesive Tape High 01/06/2019 Skin rips off Other reaction(s): paper - tears skin Other reaction(s): rash/blisters pt allergic to paper tape Cephalexin Rash,Other (see comments) Low 10/16/2017 Other reaction(s): hives Levofloxacin 12/26/2021 Other reaction(s): pain/depression [place] Other (see comments) 07/05/2020 Other reaction(s): unknown Meperidine Nausea And Vomiting,Other (see comments) 10/16/2017 Meperidine Hcl 12/26/2021 Other reaction(s): N/V Metoprolol Itching 05/09/2023 Ihysk-Wrxpu-Yhtlqkh-Pra moxine Hives,Itching High 01/06/2019 Antibiotic cream Neomycin [...] 07/05 Hypertension 10/16/2017 Iron deficiency anemia 10/15/2017 Encounters Date Type Department Care Team Description 04/19/2025 Orders Only [facility] [address] [place] [address] [place] [address] Kenyatta Spear Chronic kidney disease, stage 4 (severe) (HCC) (Primary Dx) from Last 3 Months Immunizations Immunization Administration Dates Next Due H1N1 Inj 12/10/2009 [...] 03/26/2022 10:21 AM EDT Plan of Treatment Health Maintenance Due Date Last Done Comments Breast Cancer Screening 1962 Colorectal Cancer Screening: Annual FOBT 2011 Colorectal Cancer Screening: Colonoscopy 2011 Colorectal Cancer Screening: Sigmoidoscopy 2011 Pneumococcal Vaccine: 50+ Years (2 of 2 - PCV) 07/16/2020 07/16/2019 Influenza Vaccine (Season Ended) 2025 09/04/2021, 09/04/2021, 07/24/2020, Additional history exists Pneumococcal Vaccine: Peds (0 to 5 Years) and At-Risk Patients (6 to 49 Years) Discontinued 07/16/2019 Hepatitis B Vaccine Aged Out No longe r eligible based on patient's age to complete this topic Insurance Medicare Medicaid [place] Care Teams Cane Cutter Relationship Specialty Start Date End Date Papito Arroyo DO [address] [place] [address] PCP - General 03/05/24
== END 2025-04-21 11:03 | disposition home or self-care (01) ==
LOC: HO.HNS 10:33
PROVIDERS: PCP Family Medicine; Visit Provider Physician Assistant
DX: Z98.1 Arthrodesis status (principal)
CPT/HCPCS: 99024

== ENCOUNTER 2025-06-02 10:55 | Outpatient (REF) | payer MEDICARE, MEDICAID, SELFPAY ==
--- NOTE | ~2025-06-02 | XR_ITS ---
EXAMINATION: XR SACROILIAC JOINTS CLINICAL INFORMATION: Z98.1 - Arthrodesis status COMPARISON: None available. TECHNIQUE: 3 views of the sacroiliac joints FINDINGS: Radiopaque material at the the right upper hemisacrum/alar. Mild sclerosis and the inferior aspect of the sacroiliac joints. No acute cortical disruption. Focal calcification in the lower pelvis. Spondylosis L4-5 and L5-S1. Dextroconvex curvature of the lower lumbar spine. XR/XR sacroiliac joint 1-2V IMPRESSION: Post surgical changes. No periosteal bone reaction. Spondylosis and scoliosis lower lumbar spine. Probable calcified uterine fibroid. Electronically signed by: Ivan Flanagan MD 06/02/2025 11:26 AM EDT
--- OUTSIDE RECORDS SUMMARY | 2025-06-02 08:19 | XMS_ITS | Clinical Summary ---
Author Organization [facility] Address [address] [place] [phone] Phone Care Team Providers Care Access Clerk Name Role Phone Papito Arroyo DO Primary Care Provider [phone] Allergies Active Allergy Reactions Criticality Noted Date Comments Adhesive Tape High 01/06/2019 Skin rips off Other reaction(s): paper - tears skin Other reaction(s): rash/blisters pt allergic to paper tape Cephalexin Rash,Other (see comments) Low 10/16/2017 Other reaction(s): hives Levofloxacin 12/26/2021 Other reaction(s): pain/depression [place] Other (see comments) 07/05/2020 Other reaction(s): unknown Meperidine Nausea And Vomiting,Other (see comments) 10/16/2017 Meperidine Hcl 12/26/2021 Other reaction(s): N/V Metoprolol Itching 05/09/2023 Seoun-Qxazf-Ehoucyo-Pra moxine Hives,Itching High 01/06/2019 Antibiotic cream Neomycin [...] TWICE DAILY AFTER WASHING NEEDED 10/20/2020 Active lisinopril 2.5 MG tablet Take 1 tablet (2.5 mg total) by mouth 1 (one) time each day 90 tablet 3 06/23/2024 06/23/20 25 Active furosemide (Lasix) 40 MG tablet Take 2 tablets (80 mg total) by mouth 1 (one) time each day 30 tablet 5 05/02/2025 Active Active Problems Problem Noted Date Diagnosed Date Chronic kidney disease, stage 4 (severe) 024 Edema 03/05/2024 Hyperkalemia 01/15/2022 Essential hypertension 11/28/2020 Stage 3b chronic kidney disease 11/28/2020 Overview (12/04/2020): Update for Diagnosis Load Chronic kidney disease due to hypertension 07/05 Hypertension 10/16/2017 Iron deficiency anemia 10/15/2017 Encounters Date Type Department Care Team Description 05/02/2025 Orders Only [facility] [place], - [address] [place] [address] Hayes Eden MD 04/19/2025 Orders Only [facility], - [facility] [address] [place] [phone] Kenyatta Spear Chronic kidney disease, stage 4 [...] 68 03/26/2022 10:21 AM EDT Temperature 36.7 C (98 F) 08/03/2019 12:00 PM EDT Respiratory Rate 14 [...] topic Insurance Medicare Medicaid [place] Care Teams Access Clerk Relationship Specialty Start Date End Date Papito Arroyo DO [address] [facility] [place] [address] PCP - General 03/05/24
--- OUTSIDE RECORDS SUMMARY | 2025-06-02 08:19 | XMS_ITS | Patient Health Record ---
Author Organization [facility] Address [address] [place] [address] Care Team Providers Care Layboy Operator Name Role Phone Mir Harding Primary Care Provider Reason For Referral No Information Plan Of Treatment No Information
== END 2025-06-02 10:56 | disposition home or self-care (01) ==
LOC: HO.HOSX 10:55
PROVIDERS: Visit Provider Physician Assistant
DX: Z98.1 Arthrodesis status (principal)
CPT/HCPCS: 72200; 99212

== ENCOUNTER 2025-06-02 11:04 | Outpatient (AMB) | payer MEDICARE, MEDICAID, SELFPAY ==
--- NOTE | 2025-06-02 11:24 | A.SPINEOV_ITS ---
Intake Visit Reasons: 2nd post op with Xray Intake Note: Ms. Johnson is here today for her 2nd post op with x-ray. Extermination Inspector Required: No Allergies Penicillins Allergy (Severe, Verified 06/02/25 11:25) Muscle Pain Quinolones Allergy (Severe, Verified 06/02/25 11:25) tired, depressed, pain cephalexin (From Keflex) Allergy (Intermediate, Verified 06/02/25 11:25) Rash Tetracyclines Allergy (Intermediate, Verified 06/02/25 11:25) Rash meperidine (From Demerol) Adverse Reaction (Intermediate, Verified 06/02/25 11:25) Nausea and Vomiting paper tape Adverse Reaction (Intermediate, Uncoded 02/21/25 16:38) tears skin Assessment & Plan Assessment & Plan (1) S/P fusion of sacroiliac joint: Code(s): Z98.1 - Arthrodesis status Category: Surgical Plan Procedure: Right SI joint dysfunction Sana is a pleasant 65 year old female who comes in today for her 1st postoperative appointment. She unfortunately continues to report pain in the right SI joint since her surgery. She does state that the pain seems to be improving at rest, but is still very severe with ambulation. It sounds like she did use her crutches for the 1st week or so after surgery, but slowly weaned herself down to a single crutch, then began ambulating independently by about week 3. 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 She is very concerned about this as she has been completing this job for the past 25 years. We discussed the postoperative healing course, it is very likely that she is dealing with some postoperative inflammation right now. It is reassuring that her symptoms are improving with rest at the very least. No new neurological deficits. The patient ambulates well and rises from a seated position without difficulty. Her posterior incision site is closed and well healed. I would like to follow up with Sana again in 4 weeks to ensure that her pain is gradually beginning to improve as postoperative inflammation typically begins to recede around weeks 4-6 after surgery. If her pain does not get any better by the next time I see her we may consider referral for SI joint ablation. Tyson Evans MD,PhD [facility] Orders: Orders XR sacroiliac joint 1-2V Today Z98.1 - Arthrodesis status Coding Level of Care Code Global (45858) Diagnoses S/P fusion of sacroiliac joint Z98.1
--- OUTSIDE RECORDS SUMMARY | 2025-06-02 11:56 | XMS_ITS ---
Author Name [facility] Organization Unknown Encounters Encounter Type Encounter Reason Primary Diagnosis Location Date Ambulatory [facility] 10/18/2023 Ambulatory [facility] 10/09/2023 Ambulatory [facility] 09/04/2023 Ambulatory [facility] 07/08/2023 Ambulatory [facility] 07[facility]08/2023 Ambulatory [facility] 07/08/2023 Ambulatory [facility] 07/08/2023
== END 2025-06-02 14:17 | disposition home or self-care (01) ==
LOC: HO.HNS 11:05
PROVIDERS: PCP Family Medicine; Visit Provider Physician Assistant
DX: Z98.1 Arthrodesis status (principal)
CPT/HCPCS: 99024

== ENCOUNTER → 2025-06-02 11:08 | Outpatient (BNV) | payer MEDICARE, MEDICAID, SELFPAY | PROVIDERS: Visit Provider Radiology Diagnostic Radiology | DX: M47.817 Spondylosis without myelopathy or radiculopathy, lumbosacral region (principal); M41.87 Other forms of scoliosis, lumbosacral region | CPT/HCPCS: 72200 ==

== ENCOUNTER 2025-07-04 11:45 | Outpatient (REF) | payer MEDICARE, MEDICAID, SELFPAY ==
--- OUTSIDE RECORDS SUMMARY | 2025-07-06 15:35 | XMS_ITS | Encounter Summary ---
Author Organization [facility] Address [address] [place] [address] Phone Care Team Providers Care Crane Engineer Name Role Phone Papito Arroyo DO Primary Care Provider [phone] Encounter Details Date Type Department Care Team (Late st Contact Info) Description 07/16/2022 Documentation Only [facility], [address] [place] [address] Lupe Bautista [address] [place] [address] Social History Tobacco Use Types [...] on filedocumented in this encounter Care Teams Crane Engineer Relationship Specialty Start Date End Date Papito Arroyo DO [address] [facility] [place] [address] PCP - General 03/05/24 documented as of this encounter
--- OUTSIDE RECORDS SUMMARY | 2025-07-06 15:35 | XMS_ITS | Encounter Summary ---
Author Organization [facility] Address [address] [place] [address] [place] [address] Phone Care Team Providers Care Occupational Health Technician Name Role Phone Kelly Brar MD Primary Care Provider Yarelis De La Paz DO Unavailable Amos Genao MD Unavailable German Meraz MD Unavailable German Kimbrough DO Unavailable Gonzales Gaviria MD Unavailable [phone] Teena Ba SUPERVISOR BOTTLE MACHINES Unavailable [phone] Kelly Brar MD Unavailable Mary Lowery MD Primary Care Provider [phone] Gonzales Gaviria MD Unavailable [phone] Nikki Conway ARCHIVES DIRECTOR Unavailable Angeles Lowe KINDERGARTEN TEACHER Unavailable Papito Arroyo DO Primary Care Provider Sharla Mark SUPERVISOR BOTTLE MACHINES Unavailable Encounter Details Date Type Department Care Team (Latest Contact Info) Description 04/07/2019 Transcribe Orders [facility] Laboratory [address] [place] [address] Gonzales Gaviria MD [address] [place], [place] [id number] [email or web address] Screening for unspecified condition (Primary Dx) Social [...] Description 06/13/2025 Procedure Pass Event Monitor [address] [place] [address] 07/29/2025 11:00 AM EDT Appointment Event Monitor [address] [place] [address] Alexis Kohler MD [address] [place] [address] 08/04/2025 10:20 AM EDT Appointment [facility] [address] [place] [address] Gonzales Gaviria MD [address] [place] [address] 08/04/2025 11:30 AM EDT Office Visit [facility] at [address] [address] Nikki Conway CNP [address] [place] [address] 08/04/2025 12:[address] [facility] at [address] [address] Gonzales Gaviria MD [address] [place] [address] Nikki Mcgraw, RACHANA 30 [place] [address] 08/19/2025 10:30 AM EDT Office Visit [facility] [address], [address] [place] [address] Natividad Espinosa DNP 22 [facility], [address] [place] [address] 09/27/2025 1:00 PM EDT Office Visit [facility] [address], [address] [place] [address] [place] Moura DO 22 [facility] [address] [place] [address] [email or web address] documented as of this encounter Results * Chemistry Hold (04/07/2019 10:10 AM EDT) Blood 04/07/2019 10:1 0 AM EDT 04/07/2019 10:19 AM EDT us Gonzales Gaviria MD LAB BLOOD ORDERABLES Final Res ult [facility] [address] [place] [address] documented in this encounter Visit Diagnoses Diagnosis Screening for unspecified condition- Primary documented in this encounter Care Teams Occupational Health Technician Relationship Specialty Start Date End Date Kelly Brar MD [address] [place] [address] [address] [place] [phone] [email or web address] PCP - General 05/31/14 07/19/19 Mary Lowery MD [address] [place] [address] [email or web address] PCP - General Family Medicine 07/20/19 06/06/24 [place] [address] [address] PCP - General Family Medicine 06/07/24 Yarelis De La Paz DO [address] [place] [address] [email or web address] Historical LMR Provider 09/15/17 02/14/21 Amos Genao MD [address] [place] [address] Historical LMR Provider 09/15/17 2 German Meraz MD [address] [place] [address] Historical LMR Provider 09/15/17 German Kimbrough DO [address] [place] [address] [facility], [place] [address] [email or web address] Historical LMR Provider 09/15/17 Gonzales Gaviria MD [address] [place] [address] [email or web address] Historical LMR Provider 09/15/17 02/14/21 Teena Ba NP [address] [place] [address] Historical LMR Provider 09/15/17 2 Kelly Brar MD [address] [place] [address] [address] [place] [phone] [email or web address] Historical LMR Provider 09/15/17 2 Gonzales Gaviria MD [address] [place] [address] Primary Oncologist Medical Oncology 02/15/21 Nikki Conway CNP [address] [place] [address] [email or web address] Nurse Practitioner Medical Oncology 02/19/23 Angeles Lowe FNP [address] [place] [address] Nurse Practitioner 07/09/23 03/22/25 Sharla Mark NP [address] [place] [address] [email or web address] Nurse Practitioner Nurse Practitioner 03/23/25 documented as of this encounter Additional Source Comments The information contained in this document represents components of the legal health record. It is not the complete legal health record.[facility]
--- OUTSIDE RECORDS SUMMARY | 2025-07-06 15:36 | XMS_ITS | Patient Health Record ---
Author Organization [facility] Address [address] [place] [address] Care Team Providers Care Respiratory Care Instructor Name Role Phone Mir Harding Primary Care Provider [phone] Reason For Referral No Information Plan Of Treatment No Information
== END 2025-07-04 11:46 | disposition home or self-care (01) ==
LOC: CF 11:45
PROVIDERS: PCP Family Medicine; Visit Provider Physician Assistant
DX: G89.18 Other acute postprocedural pain (principal); M41.56 Other secondary scoliosis, lumbar region; Z98.1 Arthrodesis status
CPT/HCPCS: 99212

== ENCOUNTER 2025-07-04 11:45 | Outpatient (AMB) | payer MEDICARE, MEDICAID, SELFPAY ==
--- NOTE | 2025-07-04 11:56 | A.SPINEOV_ITS ---
Intake Visit Reasons: 4 weeks f/up Intake Note: Ms. Johnson is here today for her 4 week f/up. Software Test Analyst Required: No Allergies Penicillins Allergy (Severe, Verified 06/02/25 11:25) Muscle Pain Quinolones Allergy (Severe, Verified 06/02/25 11:25) tired, depressed, pain cephalexin (From Keflex) Allergy (Intermediate, Verified 06/02/25 11:25) Rash Tetracyclines Allergy (Intermediate, Verified 06/02/25 11:25) Rash meperidine (From Demerol) Adverse Reaction (Intermediate, Verified 06/02/25 11:25) Nausea and Vomiting paper tape Adverse Reaction (Intermediate, Uncoded 02/21/25 16:38) tears skin Assessment & Plan Assessment & Plan (1) Scoliosis of lumbar region due to degenerative disease of spine in adult: Code(s): M41.56 - Other secondary scoliosis, lumbar region Category: Medical Plan Sana is a pleasant 65 year old female who comes in today for a follow up visit after having Right SIJ fusion completed about 2 months ago. Unfortunately, she has had a persistent right-sided radicular pain shooting down the backside of her right leg terminating near the calf. During her last visit, we discussed this potentially being related to postoperative inflammation, therefore we had her follow up again in 4 weeks from her last visit. She is very concerned that she has been inactive, largely immobile, and in pain since before her surgery. She feels that the right-sided SI joint fusion may not have been successful. She asked several questions regarding her previous diagnosis of a degenerative scoliosis, and inquired if there is anything that can be done for her lumbar spine to help relieve her pain. It does sound to me as if she may be suffering from a right-sided S1 radiculopathy. She is unable to obtain MRI imaging due to vagus nerve stimulator leads which are still in place. I believe that given her lack of response to her SI joint fusion and continued radicular symptoms a CT myelogram would be appropriate to evaluate for progress of her moderate-severe dextroscoliosis, degenerative disc disease, and potential central canal/foraminal stenosis resulting from this. Orders: Orders [place] myelogram spine lumbosacral Today M41.56 - Other secondary scoliosis, lumbar region CT lumbar post myelography Today M41.56 - Other secondary scoliosis, lumbar region Coding Level of Care Code Est Pt Level 2 (53108) Diagnoses Scoliosis of lumbar region due to degenerative disease of spine in adult M41.56
--- OUTSIDE RECORDS SUMMARY | 2025-07-04 12:32 | XMS_ITS | Encounter Summary ---
Author Organization [facility] Address [address] [place] [address] Phone Care Team Providers Care Police Commanding Officer Name Role Phone Papito Arroyo DO Primary Care Provider [phone] Encounter Details Date Type Department Care Team (Late st Contact Info) Description 07/16/2022 Documentation Only [facility] [place], [address] [place] [address] Lupe Bautista [address] [place] [address] Social History Tobacco Use Types [...] on filedocumented in this encounter Care Teams Police Commanding Officer Relationship Specialty Start Date End Date Papito Arroyo DO [address] [facility] [place] [address] PCP - General 03/05/24 documented as of this encounter
--- OUTSIDE RECORDS SUMMARY | 2025-07-04 12:32 | XMS_ITS | Patient Health Record ---
Author Organization [facility] Address [address] [place] [address] Care Team Providers Care Stevedoring Supervisor Name Role Phone Mir Harding Primary Care Provider Reason For Referral No Information Plan Of Treatment No Information
--- OUTSIDE RECORDS SUMMARY | 2025-07-04 12:32 | XMS_ITS | Encounter Summary ---
Author Organization [facility] Address [address] [place] [address] [place] [address] Phone Care Team Providers Care Termite Renewal Inspector Name Role Phone Kelly Brar MD Primary Care Provider Yarelis De La Paz DO Unavailable Amos Genao MD Unavailable German Meraz MD Unavailable German Kimbrough DO Unavailable Gonzales Gaviria MD Unavailable [phone] Teena Ba MOLD BLOWER Unavailable [phone] Kelly Brar MD Unavailable Mary Lowery MD Primary Care Provider [phone] Gonzales Gaviria MD Unavailable [phone] Nikki Conway SMALL BOAT ENGINEER Unavailable Angeles Lowe AVIATION SAFETY EQUIPMENT TECHNICIAN Unavailable Papito Arroyo DO Primary Care Provider Sharla Mark MOLD BLOWER Unavailable Encounter Details Date Type Department Care Team (Latest Contact Info) Description 04/07/2019 Transcribe Orders [facility] Laboratory [address] [place] [address] Gonzales Gaviria MD [address] [place], [place] [id number] [email or web address] Screening for unspecified condition (Primary Dx) Social History Tobacco Use Types Packs/Day Years Used Date Smoking Tobacco: Former Cigarettes Q uit: 1993 Smokeless Tobacco: Never Comments Unknown Sex and Gender Information Value Date Recorded Sex Assigned at Female 09/09/2019 8:06 PM EDT Legal Sex Female 6:28 PM EST Gender Identity Female 09/09/2019 8:06 PM EDT Sexual Orientation Straight 09/09/2019 8: 06 PM EDT documented as of this encounter Plan of Treatment Upcoming Encounters Date Type Department Care Team (Late st Contact Info) Description 06/13/2025 Procedure Pass [facility] [address] [place] [address] 07/29/2025 11:00 AM EDT Appointment Event Monitor [address] [place] [address] Alexis Kohler MD [address] [place] [address] 08/04/2025 10:20 AM EDT Appointment [facility] [address] [place] [address] Gonzales Gaviria MD [address] [place] [address] 08/04/2025 11:30 AM EDT Office Visit [facility] at [address] [address] Nikki Conway CNP [address] [place] [address] 08/04/2025 12:[address] [facility] at [address] [address] Gonzales Gaviria MD [address] [place] [address] Nikki Mcgraw, RACHANA [address] [place] [address] 08/19/2025 10:30 AM EDT Office Visit [facility] [address] Floor, [address] [place] [address] Natividad Espinosa DNP 22 [facility], [address] [place] [address] 09/27/2025 1:00 PM EDT Office Visit [facility] [address], [address] [place] [address] [place] Moura DO 22 [facility] [address] [place] [address] [email or web address] documented as of this encounter Results * Chemistry Hold (04/07/2019 10:10 AM EDT) Blood 04/07/2019 10:1 0 AM EDT 04/07/2019 10:19 AM EDT us Gonzales Gaviria MD LAB BLOOD ORDERABLES Final Res ult [facility] [address] [place] [address] documented in this encounter Visit Diagnoses Diagnosis Screening for unspecified condition- Primary documented in this encounter Care Teams Termite Renewal Inspector Relationship Specialty Start Date End Date Kelly Brar MD [address] [place] [address] [address] [place] [phone] [email or web address] PCP - General 05/31/14 07/19/19 Mary Lowery MD [address] [place] [address] [email or web address] PCP - General Family Medicine 07/20/19 06/06/24 [place] [address] [address] PCP - General Family Medicine 06/07/24 Yarelis De La Paz DO 30 [place] [address] [email or web address] Historical LMR Provider 09/15/17 02/14/21 Amos Genao MD [address] [place] [address] Historical LMR Provider 09/15/17 2 German Meraz MD [address] [place] [address] Historical LMR Provider 09/15/17 German Kimbrough DO [address] [place] [address] [facility], [place] [address] [email or web address] Historical LMR Provider 09/15/17 Gonzales Gaviria MD [address] [place] [address] [email or web address] Historical LMR Provider 09/15/17 02/14/21 Teena Ba NP 30 [place] [address] Historical LMR Provider 09/15/17 2 Kelly Brar MD [address] [place] [address] [address] [place] [phone] [email or web address] Historical LMR Provider 09/15/17 2 Gonzales Gaviria MD [address] [place] [address] Primary Oncologist Medical Oncology 02/15/21 Nikki Conway CNP [address] [place] [address] [email or web address] Nurse Practitioner Medical Oncology 02/19/23 Angeles Lowe FNP [address] [place] [address] Nurse Practitioner 07/09/23 03/22/25 Sharla Mark NP [address] [place] [address] [email or web address] Nurse Practitioner Nurse Practitioner 03/23/25 documented as of this encounter Additional Source Comments The information contained in this document represents components of the legal health record. It is not the complete legal health record.[facility]
== END 2025-07-04 12:13 | disposition home or self-care (01) ==
LOC: HO.HNS 11:45
PROVIDERS: PCP Family Medicine; Visit Provider Physician Assistant
DX: M41.56 Other secondary scoliosis, lumbar region (principal)
CPT/HCPCS: 99212